=== PATIENT | female | born 1990 | race Caucasian/White ===

== ENCOUNTER 2018-01-29 20:25 | Emergency (ER) | payer OTHER ==
[~2018-01-29] VITALS: Ht 162.6 cm; Wt 108.9 kg
--- OUTSIDE RECORDS SUMMARY | 2018-01-29 20:28 | XMS REPORT | Clinical Summary ---
Author Author [facility] Organization [facility] Address Unknown Phone Unavailable Care Team Providers Care Multifocal Lens Assembler Name Role Phone Asked, Pcp PCP Unavailable Allergies Active Allergy Reactions Severity Noted Date Comments Hydrocodone 04/30/2017 Current Medications Prescription Sig. Disp. Refills Start End Date Status Date ondansetron ODT (ZOFRAN Take 1 tablet (4 mg 15 tablet 0 04/30/20 ODT) 4 MG disintegrating total) by mouth every 8 17 17 tablet (eight) hours as needed for nausea or vomiting for up to 30 days. Active Problems Not on file Encounters Date Type Specialty Care Team Description 04/30/2017 Emergency Emergency Medicine Raeann Fair, [employer] ATTENDANT-C Pharyngitis, unspecified Melchor eRbolledo etiology (Primary Dx) MD Chuy after 01/28/2017 Social History Tobacco Use Types Packs/Day Years Used Date Never Assessed Sex Assigned at Date Recorded Not on file Last Filed Vital Signs Vital Sign Reading Time Taken Blood Pressure 125/84 04/30/2017 11:36 PM CDT Pulse 94 04/30/2017 11:36 PM CDT Temperature 35.9 C (96.7 F) 04/30/2017 11:36 PM CDT Respiratory Rate 18 04/30/2017 11:36 PM CDT Oxygen Saturation 98% 04/30/2017 6:08 PM CDT Inhaled Oxygen - - Concentration Weight - - Height 162.6 cm (5' 4") 04/30/2017 6:09 PM CDT Body Mass Index - - Plan of Treatment Health Maintenance Due Date Last Done Comments PAP SMEAR 2013 INFLUENZA VACCINE 06/18/2017 Results * CT Soft Tissue Neck W Contrast (04/30/2017 10:33 PM) Specimen Performing Laboratory [facility] [address] [place] [address] Narrative EXAMINATION: CT SOFT TISSUE NECK W CONTRAST CLINICAL HISTORY: dysphagia COMPARISON:None TECHNIQUE: Postcontrast enhanced imaging through the neck was performed from the upper chest through the skull base with coronal and sagittal reconstructed images.CT imaging was performed with iterative reconstruction technique and/ or automated exposure control to reduce radiation dose. FINDINGS: The partially imaged skull base is intact. The orbits are unremarkable. Prevertebral soft tissues are within normal limits. Osseous structures are intact. The facet joints are intact without widening or subluxation. The visualized aerodigestive tract shows no evidence of effacement or exophytic lesion. The visualized upper mediastinum is intact. Lung apices are clear. There are some reactive lymph nodes in the left upper jugular chain/ jugulodigastric region. No grossly pathologically enlarged lymph nodes identified. There is no mass or fluid collection. There is no fat stranding. Salivary glands are intact. Sinuses are clear. Mastoid air cells are clear. IMPRESSION: There are some reactive lymph nodes in the upper left neck. No pathologically enlarged lymph nodes identified. There is no abnormality to explain patient's dysphagia. [id number] Procedure Note Hm Interface, Radiology Results Incoming - 04/30/2017 10:45 PM CDT EXAMINATION: CT SOFT TISSUE NECK W CONTRAST CLINICAL HISTORY: dysphagia COMPARISON: None TECHNIQUE: Postcontrast enhanced imaging through the neck was performed from the upper chest through the skull base with coronal and sagittal reconstructed images. CT imaging was performed with iterative reconstruction technique and/ or automated exposure control to reduce radiation dose. FINDINGS: The partially imaged skull base is intact. The orbits are unremarkable. Prevertebral soft tissues are within normal limits. Osseous structures are intact. The facet joints are intact without widening or subluxation. The visualized aerodigestive tract shows no evidence of effacement or exophytic lesion. The visualized upper mediastinum is intact. Lung apices are clear. There are some reactive lymph nodes in the left upper jugular chain/ jugulodigastric region. No grossly pathologically enlarged lymph nodes identified. There is no mass or fluid collection. There is no fat stranding. Salivary glands are intact. Sinuses are clear. Mastoid air cells are clear. IMPRESSION: There are some reactive lymph nodes in the upper left neck. No pathologically enlarged lymph nodes identified. There is no abnormality to explain patient's dysphagia. [id number] * Group A strep, rapid antigen (04/30/2017 9:05 PM) Component Value Ref Range Group A strep, rapid Negative for Group A Streptococcus antigen. antigen result Comment: Specimen Information Specimen Source: Throat Specimen Site: Not otherwise specified Specimen Performing Laboratory Throat - Not otherwise [facility] DEPARTMENT OF PATHOLOGY AND GENOMIC MEDICINE specified [address] [place] [address] * Strep screen culture (04/30/2017 9:05 PM) Component Value Ref Range Strep screen culture No beta hemolytic Streptococci isolated isolate Comment: Specimen Information Specimen Source: Throat Specimen Site: Not otherwise specified Specimen Performing Laboratory Throat - Not otherwise [facility] DEPARTMENT OF PATHOLOGY AND GENOMIC MEDICINE specified [address] [place] [address] * Infectious mononucleosis screen (04/30/2017 8:36 PM) Component Value Ref Range Heterophile Ab screen Negative Negative Specimen Performing Laboratory Blood [facility] DEPARTMENT OF PATHOLOGY AND GENOMIC MEDICINE [address] [place] [address] * Estimated GFR (04/30/2017 8:36 PM) Component Value Ref Range GFR Non Af Amer 88 mL/min/1.73 m2 GFR Af Amer >90 mL/min/1.73 m2 Comment: Chronic kidney disease: <60 mL/min/1.73m2 Kidney failure: <15 mL/min/1.73m2 The estimated GFR is calculated from the IDMS-traceable Modification of Diet in Renal Disease Equation. The accuracy of the calculation is poor when the creatinine is normal. Calculated values >90 mL/min/1.73m2 are not reported. This equation has not been validated in children (<18 years), women, the elderly (>70 years), or ethnic groups other than Caucasians and Americans. Specimen Performing Laboratory Plasma specimen [facility] DEPARTMENT OF PATHOLOGY AND GENOMIC MEDICINE [address] [place] [address] * CBC with platelet and differential (04/30/2017 8:36 PM) Component Value Ref Range WBC 8.1 4.2 - 11.0 k/uL RBC 4.50 4.04 - 5.86 m/uL HGB 13.2 11.5 - 15.3 g/dL HCT 39.6 34.0 - 45.0 % MCV 88.0 80.0 - 98.0 fL MCH 29.3 27.0 - 34.0 pg MCHC 33.3 31.5 - 36.5 g/dL RDW - SD 41.9 37.0 - 51.0 fL MPV 10.8 (H) 7.4 - 10.4 fL Platelet count 335 150 - 400 k/uL Nucleated RBC 0.00 /100 WBC Neutrophils 53.0 36.0 - 66.0 % Lymphocytes 32.6 24.0 - 44.0 % Monocytes 8.2 (H) 0.0 - 6.0 % Eosinophils 5.9 0.0 - 6.0 % Basophils 0.2 0.0 - 1.2 % Immature granulocytes 0.1 0.0 - 1.0 % Specimen Performing Laboratory Blood [facility] DEPARTMENT OF PATHOLOGY AND GENOMIC MEDICINE [address] [place] [address] * hCG qualitative, serum screen (04/30/2017 8:36 PM) Component Value Ref Range hCG qualitative, serum Negative Comment: The manufacturers stated sensitivity of HcG test for serum is >/=10 mIU/ml and urine is >/=20mIU/ml. Specimen Performing Laboratory Blood [facility] DEPARTMENT OF PATHOLOGY AND GENOMIC MEDICINE [address] [place] [address] * Comprehensive metabolic panel (04/30/2017 8:36 PM) Component Value Ref Range Sodium 140 135 - 150 mEq/L Potassium 3.9 3.5 - 5.0 mEq/L Chloride 104 100 - 109 mEq/L CO2 30 24 - 32 mmol/L Anion gap 6 (L) 7 - 15 mEq/L Comment: Starting from February , anion gap calculation no longer incorporates potassium. Please note the change. BUN 9 7 - 18 mg/dL Creatinine 0.8 0.8 - 1.5 mg/dL Glucose 120 (H) 65 - 100 mg/dL Calcium 8.9 8.6 - 10.7 mg/dL Protein 7.9 6.3 - 8.2 g/dL Albumin 4.0 3.2 - 5.0 g/dL A/G ratio 1.0 0.7 - 3.8 Alkaline phosphatase 66 30 - 120 U/L AST 53 (H) 15 - 37 U/L ALT 90 (H) 30 - 65 U/L Total bilirubin 0.3 0.2 - 1.2 mg/dL Specimen Performing Laboratory Plasma specimen [facility] DEPARTMENT OF PATHOLOGY AND GENOMIC MEDICINE [address] [place] [address] after 01/28/2017 Insurance Payer Benefit Subscriber ID Type Phone Address Plan / Group [employer] MED[employer] xxxxxxxxx O [facility]
[2018-01-29 21:25] VITALS: BP 116/88
--- NOTE | 2018-01-29 21:34 | Diagnostic Imaging Report ---
CHEST 2 VIEWS, Technique: CHEST 2 VIEWS Comparison: None Clinical history: \S\COUGH X 1 WEEK \S\[id number] \S\2100 DISCUSSION: Low lung volumes. Otherwise normal appearance of the heart, mediastinum, lungs and pleural spaces. IMPRESSION: No acute abnormality Signed by: Dr Feli Hanna MD on 01/29/2018 9:31 PM
== END 2018-01-29 22:00 | disposition home or self-care (01) ==
LOC: ER 20:25
DX: R05 Cough (principal); J20.9 Acute bronchitis, unspecified
CPT/HCPCS: 71046; 81025; 93005; 99283